=== PATIENT | female | born 1970 | race Caucasian/White ===

== ENCOUNTER 2018-11-07 19:34 | Emergency (ER) | payer MEDICAID ==
[~2018-11-07] VITALS: Ht 165.1 cm; Wt 100.0 kg
[2018-11-07 19:44] VITALS: BP 109/62
[2018-11-07 20:08] LABS: BASOPHILS % (AUTO) 0.4 % (0-1); EOSINOPHILS # (AUTO) 0.5 X10'3 (0-0.9); EOSINOPHILS % (AUTO) 6.3 % (0-6); HEMATOCRIT 42.8 % (35.0-45.0); HEMOGLOBIN 14.7 g/dl (12.0-16.0); LYMPHOCYTES # (AUTO) 3.8 X10'3 (1.1-4.8); LYMPHOCYTES % (AUTO) 45.7 % (21-51); MEAN CORPUSCULAR HEMOGLOBIN 32.7 PG (27.0-31.0); MEAN CORPUSCULAR HGB CONC 34.3 g/dL (33.0-36.5); MEAN CORPUSCULAR VOLUME 95.1 FL (78-98); MEAN PLATELET VOLUME 7.9 FL (7.4-10.4); MONOCYTES # (AUTO) 0.6 X10'3 (0-0.9); MONOCYTES % (AUTO) 6.8 % (2-12); NEUTROPHILS # (AUTO) 3.4 X10'3 (1.8-7.7); NEUTROPHILS % (AUTO) 40.8 % (42-75); PLATELET COUNT 299 X10'3 (140-440); RED CELL DISTRIBUTION WIDTH 12.6 % (11.5-14.5); WHITE BLOOD COUNT 8.3 X10'3 (4.5-11.0)
[2018-11-07 20:20] LABS: ALANINE AMINOTRANSFERASE 45 U/L (12-78); ALBUMIN 3.5 G/DL (3.4-5.0); ALKALINE PHOSPHATASE 106 IU/L (46-116); ANION GAP 10 (8-16); ASPARTATE AMINO TRANSFERASE 18 U/L (10-37); BILIRUBIN,TOTAL 0.3 MG/DL (0.1-1.0); BLOOD UREA NITROGEN 24 MG/DL (7-18); BUN/CREATININE RATIO 38.7 (6.6-38.0); CALCIUM 8.3 MG/DL (8.5-10.1); CHLORIDE 104 MMOL/L (99-107); CREATININE 0.62 MG/DL (0.40-0.90); GLUCOSE 78 MG/DL (70-104); POTASSIUM 4.1 MMOL/L (3.5-5.1); SODIUM 138 MMOL/L (135-145); TOTAL CARBON DIOXIDE 24.3 MMOL/L (24-32); eGFR > 90 ML/MIN
[2018-11-07 20:22] LABS: PARTIAL THROMBOPLASTIN TIME 31 SECONDS (22-32); PROTHROMBIN TIME 10.2 SECONDS (9.0-12.0)
== END 2018-11-07 20:44 | disposition home or self-care (01) ==
LOC: ER 19:35
DX: R07.89 Other chest pain (principal); R11.0 Nausea; R42 Dizziness and giddiness; G62.9 Polyneuropathy, unspecified; F17.200 Nicotine dependence, unspecified, uncomplicated
CPT/HCPCS: 36415; 71045; 80053; 84484; 85025; 85610; 85730; 93005; 99284

== ENCOUNTER 2019-01-22 12:48 | Emergency (ER) | payer MEDICAID ==
[~2019-01-22] VITALS: Ht 166.4 cm; Wt 92.0 kg
[2019-01-22 13:28] LABS: CLARITY,URINE CLEAR (Clear); COLOR,URINE YELLOW (Yellow); GLUCOSE, URINE NEGATIVE (Neg); KETONES,URINE NEGATIVE (Neg); LEUKOCYTE ESTERASE ,URINE NEGATIVE (Neg); NITRITES, URINE NEGATIVE (Neg); OCCULT BLOOD,URINE NEGATIVE (Neg); PH,URINE 6.5 (4.8-8.0); PROTEIN,URINE NEGATIVE (Neg); URINE HCG NEGATIVE (NEG); UROBILINOGEN,URINE 0.2 E.U/dL (0.2-1.0)
[2019-01-22 13:31] LABS: UA COLLECTION TYPE CLN CATCH MIDSTREAM
[2019-01-22 13:36] VITALS: BP 129/71
[2019-01-22 14:20] LABS: BASOPHILS # (AUTO) 0.1 X10'3 (0-0.2); BASOPHILS % (AUTO) 1.2 % (0-1); EOSINOPHILS # (AUTO) 0.5 X10'3 (0-0.9); EOSINOPHILS % (AUTO) 5.9 % (0-6); HEMATOCRIT 39.1 % (35.0-45.0); HEMOGLOBIN 13.9 g/dl (12.0-16.0); LYMPHOCYTES # (AUTO) 3.5 X10'3 (1.1-4.8); LYMPHOCYTES % (AUTO) 44.4 % (21-51); MEAN CORPUSCULAR HEMOGLOBIN 33.5 PG (27.0-31.0); MEAN CORPUSCULAR HGB CONC 35.6 g/dL (33.0-36.5); MONOCYTES # (AUTO) 0.5 X10'3 (0-0.9); MONOCYTES % (AUTO) 6.1 % (2-12); NEUTROPHILS # (AUTO) 3.3 X10'3 (1.8-7.7); NEUTROPHILS % (AUTO) 42.4 % (42-75); PLATELET COUNT 287 X10'3 (140-440); RED BLOOD COUNT 4.16 X10'6 (4.20-5.60); RED CELL DISTRIBUTION WIDTH 12.6 % (11.5-14.5); WHITE BLOOD COUNT 7.8 X10'3 (4.5-11.0)
[2019-01-22 14:24] LABS: INR 1.1 INR
[2019-01-22 14:28] LABS: ALANINE AMINOTRANSFERASE 26 U/L (12-78); ALBUMIN 3.9 G/DL (3.4-5.0); ALBUMIN/GLOBULIN RATIO 1.3 (1.1-1.5); ALKALINE PHOSPHATASE 85 IU/L (46-116); ANION GAP 8 (8-16); ASPARTATE AMINO TRANSFERASE 14 U/L (10-37); BILIRUBIN,TOTAL 0.5 MG/DL (0.1-1.0); BLOOD UREA NITROGEN 14 MG/DL (7-18); BUN/CREATININE RATIO 22.6 (6.6-38.0); CALCIUM 8.8 MG/DL (8.5-10.1); CHLORIDE 103 MMOL/L (99-107); CREATININE 0.62 MG/DL (0.40-0.90); GLUCOSE 91 MG/DL (70-104); POTASSIUM 3.8 MMOL/L (3.5-5.1); SODIUM 135 MMOL/L (135-145); TOTAL CARBON DIOXIDE 24.1 MMOL/L (24-32); TOTAL PROTEIN 6.9 G/DL (6.4-8.2); eGFR > 90 ML/MIN
[2019-01-22] MEDS ORDERED: DICY10CA88 PO (14:46)
[2019-01-22] MEDS ORDERED: ONDA4TAB12 PO (14:46)
[2019-01-22] MEDS ORDERED: OMEP40CA37 PO (14:48)
== END 2019-01-22 15:00 | disposition home or self-care (01) ==
LOC: ER 12:49
DX: R10.11 Right upper quadrant pain (principal); R11.0 Nausea; F17.210 Nicotine dependence, cigarettes, uncomplicated; Z79.899 Other long term (current) drug therapy
CPT/HCPCS: 36415; 74176; 80053; 81003; 81025; 85025; 85610; 99284

== ENCOUNTER 2022-05-03 20:38 | Emergency (ER) | payer MEDICAID ==
[~2022-05-03] VITALS: Ht 165.1 cm; Wt 91.8 kg
[~2022-05-03 20:38] MED LIST: ONDA4TAB12 PO
[2022-05-03 22:00] LABS: BASOPHILS # (AUTO) 0.1 X10'3 (0-0.2); BASOPHILS % (AUTO) 0.5 % (0-1); EOSINOPHILS % (AUTO) 0.1 % (0-6); HEMATOCRIT 44.9 % (35.0-45.0); HEMOGLOBIN 15.4 g/dl (12.0-16.0); LYMPHOCYTES # (AUTO) 1.7 X10'3 (1.1-4.8); LYMPHOCYTES % (AUTO) 13.3 % (21-51); MEAN CORPUSCULAR HGB CONC 34.2 g/dL (33.0-36.5); MEAN CORPUSCULAR VOLUME 93.5 FL (78-98); MEAN PLATELET VOLUME 7.7 FL (7.4-10.4); MONOCYTES # (AUTO) 0.4 X10'3 (0-0.9); MONOCYTES % (AUTO) 2.8 % (2-12); NEUTROPHILS # (AUTO) 10.5 X10'3 (1.8-7.7); NEUTROPHILS % (AUTO) 83.3 % (42-75); PLATELET COUNT 341 X10'3 (140-440); RED CELL DISTRIBUTION WIDTH 12.3 % (11.5-14.5); WHITE BLOOD COUNT 12.6 X10'3 (4.5-11.0)
[2022-05-03 22:16] LABS: ALANINE AMINOTRANSFERASE 13 U/L (12-78); ALKALINE PHOSPHATASE 102 IU/L (46-116); ANION GAP 15 (8-16); ASPARTATE AMINO TRANSFERASE 16 U/L (10-37); BILIRUBIN,TOTAL 0.6 MG/DL (0.1-1.0); BLOOD UREA NITROGEN 13 MG/DL (7-18); CALCIUM 9.1 MG/DL (8.5-10.1); CHLORIDE 103 MMOL/L (99-107); CREATININE 0.59 MG/DL (0.40-0.90); GLUCOSE 133 MG/DL (70-104); LIPASE 113 U/L (73-393); POTASSIUM 3.6 MMOL/L (3.5-5.1); SODIUM 142 MMOL/L (135-145); TOTAL CARBON DIOXIDE 23.8 MMOL/L (24-32); eGFR > 90 ML/MIN
[2022-05-03 23:14] VITALS: BP 136/80
[2022-05-03] MEDS ORDERED: normal saline 1000ML IV soln IVB ONE (23:45)
[2022-05-03] MEDS ORDERED: pantoprazole IV 80 MG in normal saline 100ml IV soln 100 ML IV ONE (23:45)
[2022-05-03] MEDS ORDERED: proCHLORperazine 10 MG/2 ml inj IV ONE (23:45)
[2022-05-04 01:06] LABS: CLARITY,URINE CLEAR (Clear); COLOR,URINE YELLOW (Yellow); GLUCOSE, URINE NEGATIVE (Neg); KETONES,URINE 40 mg/dl (Neg); LEUKOCYTE ESTERASE ,URINE NEGATIVE (Neg); NITRITES, URINE NEGATIVE (Neg); OCCULT BLOOD,URINE SMALL (Neg); PROTEIN,URINE NEGATIVE (Neg); UROBILINOGEN,URINE 0.2 E.U/dL (0.2-1.0)
[2022-05-04 01:11] LABS: URINE HCG NEGATIVE (NEG)
[2022-05-04 01:12] LABS: UA COLLECTION TYPE CLN CATCH MIDSTREAM
[2022-05-04 01:13] LABS: BACTERIA,URINE FEW /HPF (Neg); SQUAMOUS EPITHELIAL CELL,UR FEW /LPF (FEW); WBC,URINE NONE SEEN /HPF (0-4)
[2022-05-04] MEDS ORDERED: diazepam inj 5 MG/ML inj. IV ONE (02:20)
--- NOTE | 2022-05-04 02:26 | NUR ---
Patient tolerated po intake, no more vomiting episodes, but reported continued nausea. Patient now medicated again
[2022-05-04] MEDS ORDERED: ONDA8TAB13 PO (02:42)
[2022-05-04] MEDS ORDERED: PANT-47 PO (02:42)
== END 2022-05-04 02:54 | disposition home or self-care (01) ==
LOC: ER 20:38
DX: R11.2 Nausea with vomiting, unspecified (principal); G89.29 Other chronic pain; F17.200 Nicotine dependence, unspecified, uncomplicated
CPT/HCPCS: 80053; 81001; 81025; 83690; 85025; 96365; 96375; 99284; C9113; J0780; J3360; J3490; J7030

== ENCOUNTER 2022-12-20 10:18 | Emergency (ER) | payer MEDICAID ==
[~2022-12-20] VITALS: Ht 165.1 cm; Wt 95.5 kg
[~2022-12-20 10:18] MED LIST changes: +ONDA8TAB13 PO; +PANT-47 PO
[2022-12-20 11:18] VITALS: BP 141/95
[2022-12-20] MEDS ORDERED: morphine 4 MG/ML inj SYRINge IV ONE (11:35)
[2022-12-20] MEDS ORDERED: morphine IR (immed. release) 30mg tablet PO STA (11:54)
== END 2022-12-20 14:16 | disposition home or self-care (01) ==
LOC: ER 10:18
DX: S82.831A Other fracture of upper and lower end of right fibula, initial encounter for closed fracture (principal); S82.61XA Displaced fracture of lateral malleolus of right fibula, initial encounter for closed fracture; G89.29 Other chronic pain; F41.9 Anxiety disorder, unspecified; F17.210 Nicotine dependence, cigarettes, uncomplicated; Z79.899 Other long term (current) drug therapy; Z60.2 Problems related to living alone; Z88.1 Allergy status to other antibiotic agents; W18.39XA Other fall on same level, initial encounter; Y93.89 Activity, other specified; Y92.89 Other specified places as the place of occurrence of the external cause; Y99.8 Other external cause status
CPT/HCPCS: 73502; 73560; 73590; 73610; 73620; 99284; A6446; A6449

== ENCOUNTER 2025-07-24 19:00 | Inpatient (IN) | payer MEDICAID ==
[~2025-07-24] VITALS: Ht 165.1 cm; Wt 95.7 kg
[~2025-07-24 19:00] MED LIST changes: +ONDA-243 PO; +ONDA-245 PO; -ONDA4TAB12 PO; -ONDA8TAB13 PO
[2025-07-24] MEDS: CefTRIAXone 2gm/D5W 50ml BAG 50 ML IV STA (19:51)
--- NOTE | 2025-07-24 20:01 | RADIOLOGY REPORT ---
CLINICAL HISTORY: SOB TECHNIQUE: Single view of the chest was obtained. COMPARISON: None FINDINGS: The heart size and pulmonary vasculature are normal. There are bibasilar opacities. IMPRESSION: Bibasilar opacities, favor trace pleural effusions and atelectasis.
--- NOTE | 2025-07-24 20:15 | Physician Documentation ---
History of Present Illness ~ Chief Complaint: Shortness of Breath Stated Complaint: SOB Time Seen by MD: 19:34 Primary Medical Doctor: Turner Mode of Arrival: EMS, Stretcher HPI 54-year-old female brought in by ambulance for evaluation of shortness a breath. Recently diagnosed with influenza B five days ago thought she was getting better then acutely became worse yesterday and today. Continues to have productive cough with myalgias. Noted to have O2 saturation of 85% prior to EMS arrival. Did receive albuterol treatment with mild increase in O2 saturation. On room air however patient remains 87%. Medication Reconciliation Allergies: Coded Allergies: clindamycin (Verified Allergy, Severe, anaphylaxis, 07/24/25) Discontinued Medications ONDANSETRON ODT 4mg tablet (Ondansetron Odt), 1 TABLET PO Q6H PRN for nausea/vomiting Discontinued Reason: patient no longer taking Ondansetron 8mg ODT (Ondansetron Odt), 1 TAB PO TID PRN for nausea/vomiting Discontinued Reason: patient no longer taking Pantoprazole Sodium (PROTONIX tablet), 1 TAB PO DAILY Discontinued Reason: patient no longer taking Past Medical History Past Medical History: Peripheral Neuropathy, Chronic Pain, Anxiety Past Surgical History: noncontributory Other Past Family History: No family hx CAD Alcohol Use: None Drug Use: none Lives with: Alone Lives In: Home Review of Systems All Other Systems at this time: Reviewed and Negative Respiratory: Reports: see HPI, cough, shortness of breath, SOB with exertion, S OB at rest, pain with breathing Physical Exam Vital Signs: RN Vital Signs have been reviewed: Yes, Temperature: 97.6, Source: Temporal, Heart Rate: 100, Respiratory Rate: 22, BP: 177/84, Pulse Oximetry: 90, Weight: 210.000 Oxygen Flow Rate: 4.0 General Appearance: alert, WD/WN, moderate distress Neck: normal inspection EENT: normal ENT inspection Respiratory: decreased breath sounds, respiratory distress Chest: no accessory muscle use Cardiovascular: normal peripheral pulses Gastrointestinal: non-tender Extremities: normal inspection Skin: normal color Neurologic: oriented x4 Psychiatric: appropriate Lymphatic: no adenopathy Progress Results/Orders Results/Orders Orders - GRETTA SARAVIA PAC Chest,Single View (07/24/25 19:47) Albuterol 2.5mg/3ml Nebule (Proventil 2. (07/24/25 19:35) * Rt Notification Q1H (07/24/25 19:32) Culture Blood (07/24/25 19:37) Completed Orders - GRETTA SARAVIA PAC Chest,Single View (07/24/25 19:47) Cbc/Diff (07/24/25 19:32) CMP (07/24/25 19:32) D-Dimer (07/24/25 19:32) LA (07/24/25 19:37) Ceftriaxone 2gm/D5w 50ml Bag (Rocephin 2 (07/24/25 19:37) Azithromycin Tablet (Zithromax Tablet) (07/24/25 19:40) Acetaminophen 1,000mg/100ml Iv (Ofirmev (07/24/25 20:30) Medications Received in ER Medications (Trade) Dose Ordered Sig/Trina Route PRN Reason Start Time Stop Time Status Last Admin Dose Admin (Proventil 2.5 MG/3ML nebule) 5 mg Q1H PRN CONTNEB SOB or wheezing 07/24/25 19:35 07/24/25 20:33 5 MG Ceftriaxone Sodium/Dextrose 50 ml @ 100 mls/hr ONCE STAT IV 07/24/25 19:37 07/24/25 20:06 DC 07/24/25 19:51 100 MLS/HR (Zithromax tablet) 500 mg ONCE ONCE PO 07/24/25 19:40 07/24/25 19:41 DC 07/24/25 19:52 500 MG Vital Signs 07/24/25 07/24/25 07/24/25 07/24/25 19:02 19:15 19:38 19:39 Temp 97.4 97.6 Pulse 99 100 Resp 22 22 B/P (MAP) 133/77 177/84 (115) Pulse Ox 95 84 87 O2 Flow Rate 0 0 2.0 07/24/25 07/24/25 07/24/25 07/24/25 19:41 19:48 20:34 20:34 Pulse 95 Resp 22 Pulse Ox 89 90 93 O2 Flow Rate 3.0 4.0 8.0 Laboratory Tests Test 07/24/25 20:13 White Blood Count 7.1 Red Blood Count 4.64 Hemoglobin 14.8 Hematocrit 42.7 Mean Corpuscular Volume 92.2 Mean Corpuscular Hemoglobin 31.9 H Mean Corpuscular Hemoglobin Concent 34.6 Red Cell Distribution Width 13.0 Platelet Count 292 Mean Platelet Volume 7.6 Neutrophils (%) (Auto) 64.9 Lymphocytes (%) (Auto) 24.3 Monocytes (%) (Auto) 4.6 Eosinophils (%) (Auto) 5.0 Basophils (%) (Auto) 1.2 H Neutrophils # (Auto) 4.6 Lymphocytes # (Auto) 1.7 Monocytes # (Auto) 0.3 Eosinophils # (Auto) 0.4 Basophils # (Auto) 0.1 CBC Comment D-Dimer 0.27 D-Dimer Comment Sodium Level 139 Potassium Level 3.5 Chloride Level 103 Carbon Dioxide Level 29.9 Anion Gap 6 L Blood Urea Nitrogen 7 Creatinine 0.56 Estimated GFR/1.73 m2 > 90 BUN/Creatinine Ratio 12.5 Glucose Level 126 H Lactic Acid Level 0.6 Calcium Level 8.5 Total Bilirubin 0.4 Aspartate Amino Transf (AST/SGOT) 14 Alanine Aminotransferase (ALT/SGPT) 13 Alkaline Phosphatase 110 Total Protein 7.7 Albumin 3.7 Globulin 4.0 Albumin/Globulin Ratio 0.9 L Chemistry Comments Medical Decision Making Additional information obtaine: old records Findings 54-year-old female with a recent diagnosis of influenza B with a known smoking history we presents to the emergency department due to hypoxia and shortness a breath. Chest x-ray imaging consistent with bilateral lower lobe effusion/pneumonia. Patient is placed in pneumonia protocol ordering 4 L of O2 to maintain oxygen saturation 94% with blood cultures obtained. She has received ceftriaxone and azithromycin in albuterol dual neb. labs are pending. Hospitalist consultation for admission. Heart Score: 0 Differential Dx:Considerations: Include: bronchitis, CHF, COPD, pneumonia, pneumonitis, pulmonary embolism, respiratory distress, respiratory failure Departure Disposition: 09 ADMITTED INPATIENT Admitted to Inpatient Unit: to hospitalist Impression: Primary Impression: Pneumonia Qualified Codes: J18.9 - Pneumonia, unspecified organism Additional Impressions: Bilateral pleural effusion Hypoxia Influenza B Referrals: NO PRIMARY CARE PROVIDER (PCP) Signature Scribe Signature: . Attestation: . GRETTA SARAVIA PAC Jul 24, 2025 20:15
[2025-07-24 20:19] LABS: MEAN PLATELET VOLUME 7.6 FL (7.4-10.4); RED CELL DISTRIBUTION WIDTH 13.0 % (11.5-14.5)
[2025-07-24] MEDS: albuterol 2.5 MG/3 ML nebule CONTNEB PRN (20:33)
[2025-07-24 20:34] VITALS: PULSE 95; RESP 22; O2SAT 93
[2025-07-24 20:36] LABS: CREATININE 0.56 MG/DL (0.40-0.90); TOTAL CARBON DIOXIDE 29.9 MMOL/L (24-32); eCRCL 101 ML/MIN; eGFR > 90 ML/MIN
[2025-07-24] MEDS: acetaminophen 1,000mg/100ml IV 100 ML IV ONE (21:21)
[2025-07-24] MEDS ORDERED: albuterol 2.5 MG/3 ML nebule NEB PRN (21:50)
[2025-07-24] MEDS ORDERED: magnesium sulf-water 2g/50mL 50 ML IV PRN (21:50)
[2025-07-24] MEDS ORDERED: magnesium Cl slow-release 64mg tablet PO PRN (21:50)
[2025-07-24] MEDS ORDERED: mag hydrox/Alum hydrox/simeth 30ml oral suspension PO PRN (21:50)
[2025-07-24] MEDS ORDERED: potassium Cl 40MEQ/1/2NS 520ml 520 ML IV PRN (21:50)
[2025-07-24] MEDS ORDERED: magnesium hydroxide 30ml (MOM) UD suspension PO PRN (21:50)
[2025-07-24] MEDS ORDERED: potassium Cl 20 mEq SR tablet PO PRN (21:50)
[2025-07-24] MEDS ORDERED: magnesium sulf-water 4G/100mL 100 ML IV PRN (21:50)
[2025-07-24] MEDS ORDERED: ondansetron/PF 4mg/2ml inj IV PRN (21:50)
[2025-07-24 22:30] LABS: ABG BASE EXCESS -1.6 mmol/L (-2.0-3.0); ABG HCO3 23.2 mmol/L (21.0-28.0); ABG OXYGEN SATURATION 89.7 % (94.0-98.0); ABG PCO2 (T) 39.9 mmHg (32.0-45.0); ABG PH (T) 7.383 (7.350-7.450); ABG PO2 (T) 55.7 mmHg (83.0-108.0); FCOHb 2.0 % (0.5-1.5); FHHb 10.1 % (0.0-5.0); FIO2 32.0 mmHg/%; FLOW 3 L/min; FMetHb 0.3 % (0.0-1.5); FO2Hb 87.6 % (94.0-98.0); MODE NASAL CANNULA; PATIENT TEMPERATURE 37.3; TOTAL HEMOGLOBIN 14.5 G/dl (12.0-16.0)
[2025-07-24 22:30] LABS: APTT 29 SECONDS (22-32); INR 1.0 INR
[2025-07-24] MEDS: vancomycin/NS 1 GM ADD-VANTAGE 250 ML IV SCH (22:38)
[2025-07-24 22:40] LABS: CHOL/HDL RATIO 5.6 (0.00-4.99); LDL CHOLESTEROL 136 MG/DL (50-100); PHOSPHORUS 3.0 MG/DL (2.3-4.5); PRO BRAIN NATRIURETIC PEPTIDE 109 PG/ML (0-125)
[2025-07-24] MEDS: ipratropium/albuterol 3ml nebule NEB SCH (23:24)
[2025-07-24 23:25] VITALS: PULSE 86; RESP 16; O2SAT 91
--- NOTE | 2025-07-24 23:28 | HISTORY AND PHYSICAL-Residence ---
History & Physical Providers to CC Resident Creating Document: CARLYN HELMS, RES CC: AVA FISHER MD ~ History of Present Illness Primary Medical Doctor: Turner Reason for Admit\Complaint: Shortness of breath, possible secondary bacterial infection History of Present Illness 54-year-old passes detailed history of peripheral neuropathy, morbid obesity, active tobacco use disorder who was recently diagnosed with influenza B presented to ED with chief complaints of shortness of breath. She says that she has been feeling shortness of breath for the last one day, associated with cough and minimal whitish sputum. She also complains of myalgias throughout her body. Patient was recently diagnosed with influenza B for which she was given albuterol plus Tamiflu for four days. After commencement of medication, she started feeling better but developed increasing shortness of breath after three days. Patient lives in her house with her daughter and son Patient is normally ambulatory on her own Patient is unemployed, she gets benefits for her schizoaffective disorder Allergies: Coded Allergies: clindamycin (Verified Allergy, Severe, anaphylaxis, 07/24/25) Home Medications Home Medications Active Past Medical History Past Medical History Peripheral neuropathy Low back pain Schizoaffective disorder Obesity Past Surgical History Surgical History Comment Cholecystectomy Past Social History Social History Comment Patient smokes 1-1/2 pack of cigarettes every day and has smoked for the last 6- 7 years Patient denies any alcohol/illicit drug use Smoking: Cigarettes Alcohol Use: None Drug Use: None Lives with: Alone Lives In: Home ROS All Other Systems: Reviewed and Negative ROS Constitutional: No fever, dizziness, weakness, no decrease in appetite HEENT: Normal vision. No sore throat, epistaxis, tinnitus Cardiovascular: No chest pain/discomfort, palpitations, syncope. no pedal edema Respiratory: Moderate sob, cough with sputum, no hemoptysis Gastrointestinal: No abdominal pain, nausea, vomiting. No diarrhea, melena. Genitourinary: No frquency, urgency, incontinence, nocturia. No dysuria, hematuria Musculoskeletal: Left footdrop, myalgias throughout body Endocrine: No fatigue, polydipsia, polyuria. No heat or cold intolerance Neurologic: No headache, vertigo. No weakness, numbness or tingling of extremities Psychiatric: No hallucinations/delusions, no anhedonia, no suicidal ideation Hematologic: No bruises Respiratory: Reports: see HPI, cough, shortness of breath, SOB with exertion, SOB at rest, pain with breathing Exam Vitals: Vital Signs Date Time Temp Pulse Resp B/P (MAP) Pulse Ox O2 Delivery O2 Flow Rate FiO2 07/24/25 20:34 8.0 07/24/25 20:34 95 22 93 07/24/25 19:38 97.6 177/84 (115) General: General: Awake, oriented to person, place and time HEENT: Conjunctive are pink, sclerae clear, no icterus, pupil is equal in both sides,strabismus noted, reactive to light, no ear discharge, no pharyngeal erythema or an edema. Neck: Supple, no JVD, no lymphadenopathy and thyromegaly. Chest: Decreased air entry in bilateral lungs, wheezing heard throughout the lungs Cardiovascular: S1-S2 regular sinus rhythm and, regular rate, no gallops, no rubs, no murmurs Abdomen: No visible peristalsis, Bowel sounds present on auscultation, soft, no tenderness, no guarding, no rigidity. Obese abdomen Extremities: Left footdrop, no pitting edema bilaterally, capillary refill intact, peripheral pulsations are intact on both sides Neurologic: Mental status: alert and conscious, oriented to place, person and time, preserved memory, normal speech. Cranial nerves I-XII: Normal. Motor system: Preserved power, coordination, no evidenced involuntary movements, left foot drop strength 5/5 in the remaining extremities Sensory system: Preserved temperature, pain and vibration sensation. 2+ deep tendon reflexes in biceps, triceps, quadriceps. Negative Babinski. Cerebellar: No nystagmus, dysdiadochokinesia, normal [id number] testing. Musculoskeletal: No joint swelling, deformities, inflammations, and no scoliosis and back tenderness. Myalgias noted throughout the body Skin: Warm and dry. Onychomycosis noted in bilateral lower extremity toes and left thumb Diagnostic Data Last Recorded Lab Results: 07/24/25201207/24/252012 Diagnostic Data: Laboratory Tests Test 07/24/25 20:13 Prothrombin Time 10.4 SECONDS (9.0-12.0) INR International Normalized Ratio 1.0 INR Activated Partial Thromboplast Time 29 SECONDS (22-32) D-Dimer 0.27 MG/L FEU (0-0.50) D-Dimer Comment Coagulation Comments Counseling Services Smoking & Tobacco Cessation: 3-10 Minutes (Discussed smoking cessation with the patient including the risk continued smoking with the patient including: lung cancer, stroke, heart attack, poor wound healing, increase in facial drinking, risk of MRSA skin infections.) Advance Care Planning Advanced Care plannin - 30 Minutes (Spent 17 minutes discussing advanced care planning/resuscitative methods patient decided she wanted to be a full code) Additional Plan Acute hypoxemic respiratory failure Possible secondary bacterial pneumonia post influenza Recently diagnosed with influenza B was initiated on Tamiflu plus albuterol, has had four days of medication Patient developed increased shortness of breath since yesterday, associated with minimal whitish sputum Chest x-ray reported Bibasilar opacities. D-dimer normal, inflammatory markers within normal limits Plan Initiated the patient on ceftriaxone plus azithromycin covering Gram-positive Gram-negative and atypical organisms Initiated the patient on probiotics as well Ordered CT chest, MRSA screening Would recommend adding vancomycin if CT showed necrotizing penumonia Ordered sputum culture, blood culture, ABG Maintain oxygen saturation more than 95%, titrate oxygen as needed Initiated the patient on breathing treatments Initiated patient on 20mg prednisone p.o x 4 days and would require taper of 10mg p.o for 3 days after that Peripheral neuropathy, controlled Patient has a left foot drop Patient states that she does not take any medication except few NSAIDs once a while Low back pain Patient that she has history of low back pain and was told that she has mild lumbar spinal stenosis Does not have any symptoms currently Schizoaffective disorder, controlled Patient used to be in treatment for schizoaffective disorder She said she used to be on clonazepam occasionally Currently she does not take any medication Active Tobacco use disorder Nicotine patch 21 mg t.i.d. Onychomycosis Noted in bilateral lower extremities toes and left thumb Would recommend oral terbinafine discharge Possible COPD Active tobacco use disorder, COPD lungs noted on chest x-ray Would recommend outpatient PFTs on discharge Possible obstructive sleep apnea Obesity Would recommend weight loss Ordered lipid profile and HbA1c Sleep study outpatient Allergies: Clindamycin Code Status: Full code DVT Prophylaxis: Heparin Lines/Tubes: PIV Nutrition: 60 g carb controlled diet PT:yes Prognosis: Guarded Disposition: Continue to monitor the patient, follow up with CT chest and cultures closely Carlyn Helms MD Internal medicine resident,PGY-1 I saw and discussed this patient with the resident team I agree with their assessment and plan as documented Date of Service: Jul 24, 2025 Billing Provider: AVA FISHER MD, JAHNAVI, RES Jul 24, 2025 23:28 KAI MCINTYRE, RES Jul 25, 2025 05:18 AVA FISHER MD Jul 25, 2025 09:08
[2025-07-24 23:31] VITALS: PULSE 87; RESP 16
--- NOTE | 2025-07-24 23:37 | RADIOLOGY REPORT ---
EXAM: CT CT CHEST W/ IV CONTRAST History: Possible secondary bacterial infection 2/2 influenza Comparison Study: None TECHNIQUE: A digital rcis image was obtained. During the uneventful, intravenous administration of contrast material, multislice data acquisition was obtained through the chest. The data set was subsequently reconstructed into axial, coronal, and sagittal images. Radiation Dose : CTDI vol 18.46 mGy, DLP 804.33 mGy*cm. Findings: Evaluation is degraded by respiratory motion. Lungs: There is scattered atelectasis/ scarring with more focal ground-glass opacity seen within the lingula. Pleura: Unremarkable Heart/Great vessels: No cardiomegaly or pericardial effusion. No CT evidence of central pulmonary embolism. Mild atherosclerotic calcifications of the aorta. Mediastinum: Mild mediastinal adenopathy. Soft tissues/Bones: Unremarkable Upper abdomen: Prior cholecystectomy. Mild splenomegaly. Impression: 1. Scattered mild pulmonary opacities most pronounced within the lingula may reflect atelectasis though infectious/ inflammatory process cannot be entirely excluded in the appropriate clinical setting. Follow-up to resolution is suggested. 2. Mild mediastinal adenopathy, possibly reactive.
[2025-07-25] VITALS (19 sets, daily range): BP systolic 134–163; BP diastolic 57–72; PULSE 78–109; RESP 16–29; TEMP 97.3–98.2; O2SAT 90–97
[2025-07-25 07:30] LABS: MEAN PLATELET VOLUME 7.7 FL (7.4-10.4); RED CELL DISTRIBUTION WIDTH 12.7 % (11.5-14.5)
[2025-07-25] MEDS ORDERED: vancomycin/NS 1 GM ADD-VANTAGE 250 ML IV SCH (07:38)
[2025-07-25 07:59] LABS: CREATININE 0.52 MG/DL (0.40-0.90); TOTAL CARBON DIOXIDE 30.6 MMOL/L (24-32); eCRCL 109 ML/MIN; eGFR > 90 ML/MIN
[2025-07-25] MEDS: K and/or MAG REPLACEMENT MC SCH (08:00)
[2025-07-25] MEDS: HYDROcodone/acetaminophen 5mg/325mg tablet PO PRN (08:05)
[2025-07-25] MEDS: lactobacillus rhamnosus 10,000 MMU CELLS/CAPSULE PO SCH (08:05)
[2025-07-25] MEDS: nicotine 21mg patch - 24 hr TD SCH (08:06)
[2025-07-25] MEDS: docusate sod 100mg capsule PO SCH (08:06)
[2025-07-25] MEDS: heparin, porcine 5000 units/ml vial SQ SCH (08:07)
[2025-07-25] MEDS: PERFLUTREN PROTEIN-A MICROSPHR (Optison) 0.22 MG/ML 3ML VIAL IV ONE (10:00)
[2025-07-25] MEDS: methylPREDNISolone sod succ/PF 40mg inj. IV SCH (10:40)
[2025-07-25] MEDS ORDERED: albuterol 2.5 MG/3 ML nebule NEB PRN (10:45)
[2025-07-25] MEDS ORDERED: MORP30CP13 PO (11:00)
[2025-07-25] MEDS ORDERED: HYDR-3973 PO (11:00)
[2025-07-25] MEDS: guaiFENesin ER 600mg tablet PO SCH (11:34)
[2025-07-25] MEDS: nicotine 21mg patch - 24 hr TD ONE (14:50)
--- NOTE | 2025-07-25 15:57 | PROGRESS NOTE- Residence ---
Progress Note - Resident Providers to CC Resident Creating Document: EVERETTE CHEW RES ~ Antibiotic Timeout Antibiotic Ordered?: Yes Subjective THe patient was seen inside the isolation room with the droplet precautions. Pt stated that her SOB is not getting much better than the last night and still having the wheezing and respiratory distress. Objective Vital Signs Date Time Temp Pulse Resp B/P (MAP) Pulse Ox O2 Delivery O2 Flow Rate FiO2 07/25/25 09:05 22 07/25/25 08:07 94 Nasal Cannula 4.0 07/25/25 07:59 93 36 07/25/25 06:00 98.1 152/71 (98) Result Diagram: 07/25/25 0716 07/25/25 0716 Vitals were stable at the moment with temp 98.1 F, IL 88/minute, RR 16/minute, BP 150/70 mm Hg, pulse oximetry 97% on nasal cannula 4 L/min. On examination, General: Coughing intermittently, slightly respiratory distress, Well alert, well oriented, not confused, not agitated, not in acute distress, well cooperated during the physical. HEENT: Conjunctive are pink, sclerae clear, no icterus, pupil is equal in both sides, reactive to light, no ear discharge, no pharyngeal erythema or an edema, mouth and lips are dry. Neck: Supple, no JVD, no lymphadenopathy and thyromegaly. Lungs: Equal air entry on both lungs, wheezing, and bilateral widespread rhonchi. 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: No focal neurological deficits, no motor and sensory weakness in all 4 extremities, could move all 4 extremities Musculoskeletal: No joint swelling, deformities, inflammations, and no scoliosis and back tenderness Skin: No active skin lesions and rashes Coagulation Studies Laboratory Tests Test 07/24/25 20:13 Prothrombin Time 10.4 SECONDS (9.0-12.0) INR International Normalized Ratio 1.0 INR Activated Partial Thromboplast Time 29 SECONDS (22-32) D-Dimer 0.27 MG/L FEU (0-0.50) D-Dimer Comment Coagulation Comments Assessment Assessment A 54 years old male with recent history of influenza B infection, COPD, possible MADDY, class two obesity BMI 35, low back pain and peripheral neuropathy, schizoaffective disorder, substance use disorder-tobacco presented with sudden shortness of breath over a day after diagnosed with influenza B and completed Tamiflu treatment for four days. She lives with her son and daughter and currently unemployed, usually goes to [facility] PCP clinic. Plan Plan # Acute hypoxemic respiratory failure 2/ # post influenza bacterial community-acquired pneumonia-covering with the broad spectrum antibiotics # Possible COPD Hx with the acute exacerbation -given history of diagnosis with influenza B completed Tamiflu treatment for four days developed into acute shortness of breaths with the evidence of whitish productive cough, oxygen desaturation to 80s, imaging evidence of Chest x-ray reported Bibasilar opacities. Chest CT W/ IV contrast showed Impression: 1. Scattered mild pulmonary opacities most pronounced within the lingula may reflect atelectasis though infectious/ inflammatory process cannot be entirely excluded in the appropriate clinical setting. Follow-up to resolution is suggested. 2. Mild mediastinal adenopathy, possibly reactive. -patient was admitted for -D-dimer normal, inflammatory markers within normal limits, ABG is maintaining normal figure with hypoxic feature Plan: -Continue IV ceftriaxone plus azithromycin -Day1 along with the probiotics -continue IV Solu-Medrol 60 mg b.i.d., we will titrate later -support respiration with incentive spirometer q.1 hour while awake, DuoNeb q.4 scheduled and q.6 as PRN -continue following up with sputum culture and sensitivity for the possible antibiotic adjustment -p.o. Mucinex 600 mg b.i.d. -explained and educated about the role of annual influenza vaccination regarding seasonal flu in reducing the severity and role of its to prevent the chances and severity of post viral pneumonia # Possible obstructive sleep apnea # class two obesity BMI 35 # Hyperlipidemia -possible sleep study outpatient -LDL 136, 10 years ASCVD risk showed 1.5-2% -However, she needs to be strict about heart healthy diet and modify active lifestyle to keep LDL <50 -strongly recommend to reduce weight with the proper weight losing plan in outpatient # Peripheral neuropathy, controlled #Low back pain -Patient has a left foot drop with Hx of mild lumbar spinal stenosis, not taking any medication except few NSAIDs once a while -HbA1C 5.2 -control the pain -topical lidocaine 5% patch daily as needed # Active Tobacco use disorder # Schizoaffective disorder -Nicotine patch 21 mg t.i.d. 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 Resident MD attestation: Patient was seen, examined and discussed with attending , Dr. Harper CHEW MD Internal Medicine Resident, PGY3 [facility] Date of Service: Jul 25, 2025 Billing Provider: RAJ GOETZ MD, TIN, RES Jul 25, 2025 15:57
[2025-07-25] MEDS: ipratropium/albuterol 3ml nebule NEB SCH ×2 (16:19→19:13)
[2025-07-25] MEDS ORDERED: ipratropium/albuterol 3ml nebule NEB SCH (16:20)
[2025-07-25] MEDS ORDERED: ipratropium/albuterol 3ml nebule NEB PRN (16:20)
--- NOTE | 2025-07-25 16:44 | CARDIOLOGY REPORT ---
APPROVED REPORT EXAM: Comprehensive 2D, Doppler, and color-flow Echocardiogram. 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 3.11 cm IVC 21.55 mm FS (%) 35.6 % SV 93.2 ml CO 8.6 L/min M-Mode Dimensions MV EPSS 1.0 (<0.5cm) Aortic Valve AoV Peak Rafael. 206.4 cm/s AoV VTI 40.0 cm AO Peak GR. 17.0 mmHg AO Mean GR. 9 mmHg LVOT VTI 28.84 cm LVOT Peak Rafael. 142.5 cm/s CAM(VTI)/BSA 2.28 cm2/m2 CAM (VTI) 2.28 cm2 AV DI 0.72 % Mitral Valve MV E Velocity 126.5 cm/s MV Peak Gr. 8 mmHg MV DECEL TIME 224 ms MV A Velocity 97.6 cm/s MV PHT 56 ms E/A Ratio 1.3 MVA (PHT) 3.93 cm2 MV VMax 143.9 cm/s TDI Medial E' P. V 14.39 cm/s E/Medial E' 8.8 Tricuspid Valve TR P. Velocity 295 cm/s RAP ESTIMATE 10 mmHg TR Peak Gr. 35 mmHg RVSP 45 mmHg Pulmonary Vein S1 Velocity 50.0 cm/s D2 Velocity 36.3 cm/s PVa Velocity 31.1 cm/s PVa Duration 68 msec LEFT VENTRICLE Normal LV size and wall thickness. Overall systolic function is normal. Overall LVEF is 65%. RIGHT VENTRICLE RV is normal size and function. RVSP is estimated at 45 mmHG. ATRIA The left atrium size is normal. AORTIC VALVE Trileaflet AV appears sclerotic without stenosis. No insufficiency. MITRAL VALVE MV is thickened with mild annular thickening and no stenosis. Trace mitral regurgitation. TRICUSPID VALVE The tricuspid valve is normal in structure. Trace tricuspid regurgitation. PULMONIC VALVE The pulmonary valve is normal in structure. Trace pulmonic insufficiency. GREAT VESSELS The aortic root is normal in size. The IVC is normal in size and collapses >50% with inspiration. PERICARDIUM There is no pericardial effusion, epicardial pad present. Other Information Study Quality: Adequate Conclusion Overall LVEF is 65%. Normal LV size and wall thickness. Overall systolic function is normal. RV is normal size and function. RVSP is estimated at 45 mmHG. Trileaflet AV appears sclerotic without stenosis. No insufficiency. Trace mitral regurgitation. Trace tricuspid regurgitation. Trace pulmonic insufficiency. There is no pericardial effusion, epicardial pad present.
[2025-07-25] MEDS: CefTRIAXone/D5W-Rocephin 1gm 50 ML IV SCH (20:13)
[2025-07-25] MEDS: VANCOMYCIN LEVEL IV ONE (22:30)
[2025-07-26] VITALS (12 sets, daily range): BP systolic 96–146; BP diastolic 44–78; PULSE 70–98; RESP 13–24; TEMP 97.5–97.8; O2SAT 91–100
[2025-07-26 06:15] LABS: MEAN PLATELET VOLUME 7.7 FL (7.4-10.4); RED CELL DISTRIBUTION WIDTH 12.6 % (11.5-14.5)
[2025-07-26 06:33] LABS: CREATININE 0.46 MG/DL (0.40-0.90); TOTAL CARBON DIOXIDE 30.6 MMOL/L (24-32); eCRCL 123 ML/MIN; eGFR > 90 ML/MIN
[2025-07-26] MEDS: potassium Cl 20 mEq SR tablet PO PRN (09:45)
[2025-07-26] MEDS ORDERED: albuterol 2.5 MG/3 ML nebule NEB PRN (13:25)
--- NOTE | 2025-07-26 13:40 | PROGRESS NOTE- Residence ---
Progress Note - Resident Providers to CC Resident Creating Document: LELAND SMITH, RES ~ Guo-Non Protocol Guo Indications Met/Not Met: F/C Indications Not Met Antibiotic Timeout Antibiotic Ordered?: Yes Subjective Patient was seen and examined at bedside. Patient reports shortness of breath improved and better than yesterday, occasional dry cough and generalized weakness. No acute overnight symptoms noted. Patient denies any concerns or complaints at the moment. Objective Vital Signs Date Time Temp Pulse Resp B/P (MAP) Pulse Ox O2 Delivery O2 Flow Rate FiO2 07/26/25 11:30 86 20 Nasal Cannula 2.0 07/26/25 11:22 94 28 07/26/25 11:00 97.6 146/61 (89) Result Diagram: 07/26/2553507/26/25535 Awake , alert and oriented to time,place, person, not in distress HEENT: Atraumatic, normocephalic, PERRLA, EOMI, anicteric sclera ; pink conjunctiva, moist mucos membranes Neck: Trachea midline. Supple, normal range of motion, no JVD, no lymphadenopathy Chest and Respiratory: Diminished breath sounds with mild wheezing bilaterally , no tachypnea .Chest wall is symmetric and without deformity. Cardiac: S1, S2 heard,Regular rate and rhythm, no murmurs heard. Abdomen: Soft, No tenderness, No guarding or rigidity, Chong's sign negative. normal bowel sounds x4 quadrant, no hepatosplenomegaly MSK: Range of motion of all extremities are normal. There is no joint pain or joint swelling or joint erythema. There is no muscle pain or tenderness or swelling. Extremities: Left footdrop, warm, well-perfused, No cyanosis, clubbing, 2+ pulses felt Neurological: Mental status exam: alert and consciousness, orientation, memory, speech - Cranial nerve test: Cranial nerves II-XII intact. - Motor system: Normal Nutrition, normal tone, Power 5/5, no involuntary movements - Sensory system: Intact - Reflex testing: Biceps, triceps and knee reflexes 2+ - Cerebellar: Normal Skin: Warm and dry. Coagulation Studies Laboratory Tests Test 07/24/25 20:13 Prothrombin Time 10.4 SECONDS (9.0-12.0) INR International Normalized Ratio 1.0 INR Activated Partial Thromboplast Time 29 SECONDS (22-32) D-Dimer 0.27 MG/L FEU (0-0.50) D-Dimer Comment Coagulation Comments Advance Care Planning Advanced Care plannin - 30 Minutes Assessment Assessment A 54 years old male with recent history of influenza B infection, COPD, possible MADDY, class two obesity BMI 35, low back pain and peripheral neuropathy, schizoaffective disorder, substance use disorder-tobacco admitted with acute hypoxemic respiratory failure, pneumonia, acute COPD exacerbation after diagnosed with influenza B and completed Tamiflu treatment for four days. She lives with her son and daughter and currently unemployed, usually goes to [facility] PCP clinic. Plan Plan # Acute hypoxemic respiratory failure 11/03 # post influenza community-acquired pneumonia-covering Gram-positive and Gram- negative organisms # acute COPD exacerbation -given history of diagnosis with influenza B completed Tamiflu treatment for four days developed into acute shortness of breaths with the evidence of whitish productive cough, oxygen desaturation to 80s, imaging evidence of Chest x-ray reported Bibasilar opacities. Chest CT W/ IV contrast showed Impression: 1. Scattered mild pulmonary opacities most pronounced within the lingula may reflect atelectasis though infectious/ inflammatory process cannot be entirely excluded in the appropriate clinical setting. Follow-up to resolution is suggested. 2. Mild mediastinal adenopathy, possibly reactive. -patient was admitted for -D-dimer normal, inflammatory markers within normal limits, ABG is maintaining normal figure with hypoxic feature Plan: -Continue IV ceftriaxone plus azithromycin -Day1 along with the probiotics -continue IV Solu-Medrol 60 mg b.i.d., we will titrate later -support respiration with incentive spirometer q.1 hour while awake, DuoNeb q.4 scheduled and q.6 as PRN -continue following up with sputum culture and sensitivity for the possible antibiotic adjustment -p.o. Mucinex 600 mg b.i.d. -explained and educated about the role of annual influenza vaccination regarding seasonal flu in reducing the severity and role of its to prevent the chances and severity of post viral pneumonia 07/26/25: Patient complains of dry cough with no sputum ABG analysis is normal Patient oxygen saturation is > 92 %, downgraded to 2 L of oxygen via NC IV Solumedrol 60 mg b.i.d., DuoNebs (ipratropium/albuterol ) q.4 H scheduled Nebulization with albuterol q.2h PRN IV Rocephin 1gm and Zithromax 500 mg, day 2 Incentive spirometry q.1h Discontinue Mucinex Kept in isolation room with the droplet precautions. # Possible obstructive sleep apnea # class two obesity BMI 35 Telemetry showed normal sinus rhythm with occasional mild tachycardia (100-110) Pt not using CPAP at home Advised sleep study outpatient Strongly recommended to reduce weight with the proper weight losing plan # Hyperlipidemia -LDL 136, 10 years ASCVD risk showed 1.5-2% -However, she needs to be strict about heart healthy diet and modify active lifestyle to keep LDL <50 -strongly recommend to reduce weight with the proper weight losing plan in outpatient -Atorvastatin 40 mg p.o. once daily # Peripheral neuropathy, controlled #Low back pain -Patient has a left foot drop with Hx of mild lumbar spinal stenosis, not taking any medication except few NSAIDs once a while -HbA1C 5.2 -control the pain -topical lidocaine 5% patch daily as needed # Active Tobacco use disorder # Schizoaffective disorder -Nicotine patch 21 mg t.i.d. -encourage to quit smoking strongly and will need to follow up with PCP for the cessation plan -will explain about the risk of coronary spasms and chest pain on nicotine patch use -History of schiz and no longer on the treatment, mentally stable at that moment Mild Hypokalemia Potassium is 3.2 Replacement as per protocol Monitor BMP Code Status: Full code DVT Prophylaxis: SC Heparin Lines/Tubes: PIV Nutrition: 60 g carb controlled diet PT:yes Prognosis: Guarded Disposition: Continue to monitor the patient, continue IV antibiotics and respiratory support, PT eval and DC plan. Resident attestation The above note has been reviewed and supervised by a senior resident PGY2 Patient was seen, examined and discussed with the attending physician Ailyn Smith MD Internal Medicine Resident, PGY 1 Date of Service: Jul 26, 2025 Billing Provider: RAJ GOETZ MD,LELAND HULL, RES Jul 26, 2025 13:40
[2025-07-26] MEDS ORDERED: AZI25OT PO (16:24)
[2025-07-26] MEDS ORDERED: BUDE10.2 INH ×2 (16:24→18:09)
[2025-07-26] MEDS ORDERED: ATOR20TA66 PO ×2 (16:24→18:09)
[2025-07-26] MEDS ORDERED: TERB30CR8 TP ×2 (16:24→18:09)
[2025-07-26] MEDS ORDERED: PRED10TA23 PO ×2 (16:32→18:09)
[2025-07-26] MEDS ORDERED: ALBU8HFA PO ×2 (16:32→18:09)
[2025-07-26] MEDS ORDERED: CEFD300C3 PO ×2 (16:32→18:09)
[2025-07-26] MEDS ORDERED: LACT1CAP26 PO ×2 (16:32→18:09)
[2025-07-26] MEDS ORDERED: AZIT500T PO (18:09)
--- NOTE | 2025-07-26 19:01 | DISCHARGE SUMMARY-Residence ---
Discharge Summary Providers to CC Resident Creating Document: WHITNEY NAJERA, RES ~ Discharge Summary Admission Diagnosis: POSS SECONDARY INFECTION 2ND TO INFLUENZA Hospital Course DATE OF ADMISSION: 07/24/2025 DATE OF DISCHARGE: 07/26/2025 Discharge Diagnosis\Comment: # Acute hypoxemic respiratory failure 2/2 # post influenza community-acquired pneumonia-covering Gram-positive and Gram- negative organisms # acute COPD exacerbation # Possible obstructive sleep apnea # class two obesity BMI 35 # Hyperlipidemia # Peripheral neuropathy, controlled #Low back pain # Active Tobacco use disorder # Schizoaffective disorder # Mild Hypokalemia Operations\Procedures: None Consultants: None Complications: None Condition on DC: Stable New Medications: albuterol inhaler (Pro-Air Inhaler) 8.5 Gm Inhaler 1-2 PUFFS PO Q4H PRN for shortness of breath, #1 INH Atorvastatin Calcium (Atorvastatin Calcium) 20 Mg Tablet 20 MG PO DAILY for 30 Days, #60 TAB Azithromycin (Zithromax) 500 Mg Tablet 1 TAB PO DAILY for 1 Day, #1 TAB Budesonide/Formoterol Fumarate (Symbicort 160-4.5 Mcg Inhaler) 160 Mcg-4.5 Mcg/Actuation Hfa.aer.ad 2 PUFFS INH Q12H for jarad for 30 Days, #10.2 GM 0 Refills Cefdinir* (Cefdinir*) 300 Mg Capsule 1 CAP PO Q12H for 7 Days, #14 CAP Lactobacillus Rhamnosus (Culturelle) 10 Billion Cell Capsule 1 CAP PO DAILY for 30 Days, #30 CAP 0 Refills Prednisone (Prednisone) 10 Mg Tablet 10 CAP PO DAILY for 12 Days, #24 TAB Take 4 tabs daily x 3 days, then 2 daily x 3days 1 daily x3 days 1/2 daily x3 days then STOP Terbinafine Hcl (Terbinafine Hcl) 1 % Cream..g. 1 APPLIC TP BID for 10 Days, #1 GM Discharge Summary: Hospital course: The patient is a 54-year-old male with a history of influenza B infection, COPD, possible obstructive sleep apnea, class II obesity (BMI 35), peripheral neuropathy, chronic low back pain, schizoaffective disorder, and tobacco use disorder, who presented with acute shortness of breath and hypoxemia following completion of a four-day course of Tamiflu for influenza B. On admission, he was found to have acute hypoxemic respiratory failure secondary to post-influenza community-acquired pneumonia and acute COPD exacerbation. Chest imaging revealed bibasilar opacities on X-ray and scattered mild pulmonary opacities in the lingula on CT chest, consistent with infectious or inflammatory changes. D-dimer and inflammatory markers were within normal limits, and ABG showed hypoxemia without hypercapnia. The patient was started on IV ceftriaxone and azithromycin, IV Solu-Medrol 60 mg BID, scheduled DuoNebs every 4 hours, and incentive spirometry. During the hospital stay the patient oxygenation improved with SpO2 >92% on 2 L nasal cannula. She remained hemodynamically stable with occasional mild tachycardia on telemetry. Potassium was noted to be mildly low (3.2) and repl aced per protocol. The patient was continued on IV antibiotics (Rocephin and Zithromax) and steroids with gradual clinical improvement. She was kept on droplet precautions due to recent influenza B infection. Other comorbid conditions were addressed during hospitalization. Her hyperlipidemia was managed with atorvastatin 40 mg daily and counseling on diet and lifestyle modification. For obesity and suspected sleep apnea, outpatient sleep study and weight reduction counseling were advised. Low back pain with left foot drop and peripheral neuropathy remained stable and was managed conservatively with topical lidocaine patch. The patient continued on nicotine patch therapy for tobacco cessation, with education regarding risks and close follow-up recommended. Overall, the patient showed gradual respiratory and symptomatic improvement with ongoing antibiotic and steroid therapy, normalization of oxygenation, and stable vital signs.Patient did not experience further complications throughout the entire hospital stay. Patient was seen and examined on the day of discharge. All labs, diagnostic workups, discharge plan discussed with patient in details during visit before discharge. All questions and concerns answered to the best of my professional knowledge. Physical examination today: Awake , alert and oriented to time,place, person, not in distress HEENT: Atraumatic, normocephalic, PERRLA, EOMI, anicteric sclera ; pink conjunctiva, moist mucos membranes Neck: Trachea midline. Supple, normal range of motion, no JVD, no lymphadenopathy Chest and Respiratory: Diminished breath sounds with improved and very mild wheezing bilaterally , no tachypnea .Chest wall is symmetric and without deformity. Cardiac: S1, S2 heard,Regular rate and rhythm, no murmurs heard. Abdomen: Soft, No tenderness, No guarding or rigidity, Chong's sign negative. normal bowel sounds x4 quadrant, no hepatosplenomegaly MSK: Range of motion of all extremities are normal. There is no joint pain or joint swelling or joint erythema. There is no muscle pain or tenderness or swelling. Extremities: Left footdrop, warm, well-perfused, No cyanosis, clubbing, 2+ pulses felt Neurological: Mental status exam: alert and consciousness, orientation, memory, speech - Cranial nerve test: Cranial nerves II-XII intact. - Motor system: Normal Nutrition, normal tone, Power 5/5, no involuntary movements - Sensory system: Intact - Reflex testing: Biceps, triceps and knee reflexes 2+ - Cerebellar: Normal Skin: Warm and dry. Imaging: Chest x-ray: Bibasilar opacities, favor trace pleural effusions and atelectasis. CT chest: Scattered mild pulmonary opacities most pronounced within the lingula may reflect atelectasis though infectious/ inflammatory process cannot be entirely excluded in the appropriate clinical setting. Mild mediastinal adenopathy, possibly reactive. Echocardiogram: Overall LVEF is 65%. Normal LV size and wall thickness. Overall systolic function is normal. RV is normal size and function. RVSP is estimated at 45 mmHG. Trileaflet AV appears sclerotic without stenosis. No insufficiency. Trace mitral regurgitation. Trace tricuspid regurgitation. Trace pulmonic insufficiency. There is no pericardial effusion, epicardial pad present. Laboratory Tests Test 07/24/25 20:13 07/24/25 22:26 07/25/25 07:16 07/25/25 22:54 White Blood Count 7.1 X10'3 6.1 X10'3 Red Blood Count 4.64 X10'6 4.58 X10'6 Hemoglobin 14.8 g/dl 14.3 g/dl Hematocrit 42.7 % 42.3 % Mean Corpuscular Volume 92.2 FL 92.4 FL Mean Corpuscular Hemoglobin 31.9 PG 31.3 PG Mean Corpuscular Hemoglobin Concent 34.6 g/dL 33.9 g/dL Red Cell Distribution Width 13.0 % 12.7 % Platelet Count 292 X10'3 287 X10'3 Mean Platelet Volume 7.6 FL 7.7 FL Neutrophils (%) (Auto) 64.9 % 66.7 % Lymphocytes (%) (Auto) 24.3 % 22.8 % Monocytes (%) (Auto) 4.6 % 5.7 % Eosinophils (%) (Auto) 5.0 % 3.7 % Basophils (%) (Auto) 1.2 % 1.1 % Neutrophils # (Auto) 4.6 X10'3 4.1 X10'3 Lymphocytes # (Auto) 1.7 X10'3 1.4 X10'3 Monocytes # (Auto) 0.3 X10'3 0.3 X10'3 Eosinophils # (Auto) 0.4 X10'3 0.2 X10'3 Basophils # (Auto) 0.1 X10'3 0.1 X10'3 CBC Comment Prothrombin Time 10.4 SECONDS INR International Normalized Ratio 1.0 INR Activated Partial Thromboplast Time 29 SECONDS D-Dimer 0.27 MG/L FEU D-Dimer Comment Coagulation Comments Sodium Level 139 MMOL/L 141 MMOL/L Potassium Level 3.5 MMOL/L 3.8 MMOL/L Chloride Level 103 MMOL/L 106 MMOL/L Carbon Dioxide Level 29.9 MMOL/L 30.6 MMOL/L Anion Gap 6 4 Blood Urea Nitrogen 7 MG/DL 5 MG/DL Creatinine 0.56 MG/DL 0.52 MG/DL Estimated GFR/1.73 m2 > 90 ML/MIN > 90 ML/MIN BUN/Creatinine Ratio 12.5 9.6 Glucose Level 126 MG/DL 115 MG/DL Hemoglobin A1c 5.2 % Lactic Acid Level 0.6 MMOL/L Calcium Level 8.5 MG/DL 8.4 MG/DL Phosphorus Level 3.0 MG/DL Magnesium Level 1.9 MG/DL Total Bilirubin 0.4 MG/DL 0.4 MG/DL Aspartate Amino Transf (AST/SGOT) 14 U/L 13 U/L Alanine Aminotransferase (ALT/SGPT) 13 U/L 11 U/L Alkaline Phosphatase 110 IU/L 109 IU/L C-Reactive Protein 3.91 MG/DL Pro-B-Type Natriuretic Peptide 109 PG/ML Total Protein 7.7 G/DL 7.3 G/DL Albumin 3.7 G/DL 3.5 G/DL Globulin 4.0 G/DL 3.8 G/DL Albumin/Globulin Ratio 0.9 0.9 Triglycerides Level 120 MG/DL Cholesterol Level 203 MG/DL LDL Cholesterol 136 MG/DL HDL Cholesterol 36 MG/DL Cholesterol/HDL Ratio 5.6 Chemistry Comments Blood Gas Specimen Type Arterial Blood Gas Puncture Site Rb O2 Saturation 89.7 % Arterial Blood pH (Temp corrected) 7.383 Arterial Blood pCO2 (Temp correct) 39.9 mmHg Arterial Blood pO2 (Temp corrected) 55.7 mmHg Arterial Blood PO2/FiO2 Ratio 1.70 mmHg/% Arterial Blood HCO3 23.2 mmol/L Arterial Blood Base Excess -1.6 mmol/L Arterial Blood Oxyhemoglobin 87.6 % Arterial Blood Carboxyhemoglobin 2.0 % Arterial Blood Methemoglobin 0.3 % Arterial Blood Deoxyhemoglobin 10.1 % Dustin Test Na Blood Gas Hemoglobin 14.5 G/dl Blood Gas Temperature 37.3 Blood Gas Liter Flow 3 L/min Blood Gas Modality Nasal cannula FiO2 32.0 mmHg/% Blood Gas Critical Value Called To ricardo cervantes/len Vancomycin Level Trough 1.0 ug/mL Test 07/26/25 05:36 White Blood Count 7.7 X10'3 Red Blood Count 4.56 X10'6 Hemoglobin 14.4 g/dl Hematocrit 41.6 % Mean Corpuscular Volume 91.3 FL Mean Corpuscular Hemoglobin 31.6 PG Mean Corpuscular Hemoglobin Concent 34.6 g/dL Red Cell Distribution Width 12.6 % Platelet Count 300 X10'3 Mean Platelet Volume 7.7 FL Neutrophils (%) (Auto) 77.2 % Lymphocytes (%) (Auto) 19.3 % Monocytes (%) (Auto) 3.2 % Eosinophils (%) (Auto) 0.1 % Basophils (%) (Auto) 0.2 % Neutrophils # (Auto) 5.9 X10'3 Lymphocytes # (Auto) 1.5 X10'3 Monocytes # (Auto) 0.2 X10'3 Eosinophils # (Auto) 0.0 X10'3 Basophils # (Auto) 0.0 X10'3 CBC Comment Sodium Level 141 MMOL/L Potassium Level 3.2 MMOL/L Chloride Level 104 MMOL/L Carbon Dioxide Level 30.6 MMOL/L Anion Gap 6 Blood Urea Nitrogen 9 MG/DL Creatinine 0.46 MG/DL Estimated GFR/1.73 m2 > 90 ML/MIN BUN/Creatinine Ratio 19.6 Glucose Level 142 MG/DL Calcium Level 8.9 MG/DL Total Bilirubin 0.2 MG/DL Aspartate Amino Transf (AST/SGOT) 11 U/L Alanine Aminotransferase (ALT/SGPT) 14 U/L Alkaline Phosphatase 96 IU/L Total Protein 7.3 G/DL Albumin 3.5 G/DL Globulin 3.8 G/DL Albumin/Globulin Ratio 0.9 Chemistry Comments Advise on discharge: Follow with PCP in 1 week Advised outpatient sleep study in view of suspicion of sleep apnea In Case of any worsening symptoms, call 911 or go to the ER immediately. Continue incentive spirometry every 2 hours while awake Initiated two inhalers, Symbicort and ProAir - continue Symbicort twice daily, 2 puffs for 30 days - use rescue inhaler ProAir albuterol as needed -Continue home pain medications ( hydrocodone and morphine ER ) *Problems/Diagnosis: (1) Influenza B Status: Acute (2) Pneumonia Status: Acute Total Time Spent on D/C: > 30 Minutes Date of Service: Jul 26, 2025 Billing Provider: RAJ GOETZ MD Problem Qualifiers (1) Pneumonia: Pneumonia type: due to unspecified organism Laterality: bilateral Lung location: unspecified part of lung Qualified Codes: J18.9 - Pneumonia, unspecified organism WHITNEY NAJERA, RES Jul 26, 2025 18:56
[2025-07-26] MEDS ORDERED: terbinafine cream 30gm TP SCH ×2 (20:00)
== END 2025-07-26 18:07 | disposition home or self-care (01) | DRG 140 ==
LOC: ER 19:00 → PCU 3S 22:05
PROVIDERS: ADMIT Internal Medicine; ATTEND Family Medicine
PROC: BW241ZZ Computerized Tomography (CT Scan) of Chest and Abdomen using Low Osmolar Contrast (ICD-10-PCS; principal; 2025-07-24)
DX: J44.1 Chronic obstructive pulmonary disease with (acute) exacerbation (principal); J96.01 Acute respiratory failure with hypoxia; J18.9 Pneumonia, unspecified organism; F25.9 Schizoaffective disorder, unspecified; J90 Pleural effusion, not elsewhere classified; G62.9 Polyneuropathy, unspecified; B35.1 Tinea unguium; E66.01 Morbid (severe) obesity due to excess calories; J44.0 Chronic obstructive pulmonary disease with (acute) lower respiratory infection; F41.9 Anxiety disorder, unspecified; G89.29 Other chronic pain; E78.5 Hyperlipidemia, unspecified; M54.50 Low back pain, unspecified; E87.6 Hypokalemia; G47.33 Obstructive sleep apnea (adult) (pediatric); Z88.1 Allergy status to other antibiotic agents; Z68.35 Body mass index [BMI] 35.0-35.9, adult
CPT/HCPCS: 36415; 36600; 71045; 71260; 80053; 80061; 80202; 82803; 83036; 83605; 83735; 83880; 84100; 85018; 85025; 85379; 85610; 85730; 86140; 87040; 87081; 93306; 94640; 94760; 96365; 96367; 99285; A4615; A6258; A7015; G0378; J0131; J0696; J1644; J2919; J3373; J7040; Q9967